=== PATIENT | female | born 1975 | race Caucasian/White ===

== ENCOUNTER 2024-01-28 00:06 | Emergency (ER) | payer BC ==
[~2024-01-28] VITALS: Ht 160 cm; Wt 79.4 kg
[2024-01-28] MEDS ORDERED: Ondansetron HCl 2 MG / ML 2ML Vial IV PRN (00:25)
[2024-01-28 00:29] LABS: BASOPHILS ABSOLUTE AUTO 0.07 K/mm3 (0.00-0.23); BASOPHILS PERCENT AUTO 1 % (0-2); EOSINOPHILS ABSOLUTE AUTO 0.16 K/mm3 (0.00-0.68); EOSINOPHILS PERCENT AUTO 1 % (0-6); Hematocrit 34.9 % (33.0-51.0); Hemoglobin 12.1 g/dL (11.5-16.0); Mean Corpuscular HGB Conc 34.7 g/dL (31.5-36.5); Mean Corpuscular Volume 87 fL (80-100); Mean Platelet Volume 8.7 fL (9.1-12.4); Platelet Count 381 K/mm3 (150-400); RDW Coefficient Variation 11.9 % (11.7-14.2); RDW Standard Deviation 38.4 fL (35.1-46.3); Red Blood Cell Count 4.03 M/mm3 (3.80-5.20); White Blood Cell Count 11.76 K/mm3 (4.00-11.30)
[2024-01-28 00:31] LABS: IMMATURE GRAN ABSOLUTE AUTO 0.05 K/mm3 (0.00-0.10); IMMATURE GRAN PERCENT AUTO 0 % (0-1); LYMPHOCYTES PERCENT AUTO 44 % (21-46); MONOCYTES ABSOLUTE AUTO 0.84 K/mm3 (0.16-1.47); MONOCYTES PERCENT AUTO 7 % (4-13); NEUTROPHILS ABSOLUTE AUTO 5.44 K/mm3 (1.96-9.15); NEUTROPHILS PERCENT AUTO 46 % (41-73)
[2024-01-28 00:50] LABS: Alanine Aminotransfer (ALT/SGP 29 U/L (12-78); Albumin, Blood 3.7 g/dL (3.4-5.0); Albumin/Globulin Ratio 1.1 (0.8-1.8); Alk Phos 77 U/L (50-136); Anion Gap 18 mmol/L (3-11); Aspartate Aminotrans (AST/SGOT 23 U/L (12-37); Bilirubin, Total <0.1 mg/dL (0.1-1.0); Blood Urea Nitrogen 18 mg/dL (8-24); Bun/Creatinine Ratio 22.4 (12.0-20.0); CO2, Blood 17 mmol/L (21-32); Calcium, Blood 8.8 mg/dL (8.5-10.1); Chloride, Blood 110 mmol/L (98-108); Globulin, Blood 3.5 g/dL (2.2-4.0); Glomerular Filtration Rate 90 (60-); Glucose, Blood 207 mg/dL (70-99); Potassium, Blood 3.2 mmol/L (3.5-5.5); Sodium, Blood 142 mmol/L (136-145); Total Protein, Blood 7.2 g/dL (6.4-8.2)
[2024-01-28] MEDS ORDERED: NEURONTIN300 MG PO (03:08)
[2024-01-28] MEDS ORDERED: BUPROPION XL150 M1 PO (03:09)
[2024-01-28] MEDS ORDERED: PAXIL40 M1 PO (03:09)
[2024-01-28] MEDS ORDERED: QUETIAPINE FUMA5012 PO (03:09)
[2024-01-28] MEDS ORDERED: NS 1,000 ML IV SCH (03:35)
[2024-01-28] MEDS ORDERED: Mag Sulfate 1 GM/D5% 100ML 100 ML IV ONE (03:35)
[2024-01-28] MEDS ORDERED: Potassium Chloride 20 MEQ TabCR PO ONE (03:45)
[2024-01-28 03:51] LABS: Ethanol (Alcohol), Blood, Med 34 mg/dL; Magnesium, Blood 2.2 mg/dL (1.6-2.4)
[2024-01-28] MEDS ORDERED: DiphenhydrAMINE HCl 50 MG/ML 1ML Vial IV ONE (05:50)
[2024-01-28] MEDS ORDERED: Acetaminophen 325 MG TABLET PO ONE (05:50)
[2024-01-28] MEDS ORDERED: Metoclopramide HCl 5MG / ML 2ML Vial IV ONE (05:50)
== END 2024-01-28 06:29 | disposition home or self-care (01) ==
LOC: ER 00:06
PROVIDERS: Student in an Organized Health Care Education/Training Program
DX: R11.2 Nausea with vomiting, unspecified (principal); F10.90 Alcohol use, unspecified, uncomplicated; F12.90 Cannabis use, unspecified, uncomplicated; Z88.8 Allergy status to other drugs, medicaments and biological substances; Z88.2 Allergy status to sulfonamides; Z88.1 Allergy status to other antibiotic agents; Z79.899 Other long term (current) drug therapy
CPT/HCPCS: 80053; 83735; 85025; 93005; 93010; 96365; 96375; 99284-25; A9270; J1200; J2765; J3475; J7030

== ENCOUNTER → 2025-08-31 | Outpatient (CLI) | payer BC ==
[~2025-08-31] MED LIST: BUPROPION XL150 M1 PO; NEURONTIN300 MG PO; PAXIL40 M1 PO; QUETIAPINE FUMA5012 PO
[2025-08-31 13:12] LABS: BASOPHILS ABSOLUTE AUTO 0.05 K/mm3 (0.00-0.23); BASOPHILS PERCENT AUTO 1 % (0-2); EOSINOPHILS ABSOLUTE AUTO 0.12 K/mm3 (0.00-0.68); EOSINOPHILS PERCENT AUTO 2 % (0-6); Hematocrit 38.1 % (33.0-51.0); Hemoglobin 12.9 g/dL (11.5-16.0); IMMATURE GRAN ABSOLUTE AUTO 0.02 K/mm3 (0.00-0.10); IMMATURE GRAN PERCENT AUTO 0 % (0-1); LYMPHOCYTES ABSOLUTE AUTO 3.18 K/mm3 (0.84-5.20); LYMPHOCYTES PERCENT AUTO 42 % (21-46); MONOCYTES ABSOLUTE AUTO 0.62 K/mm3 (0.16-1.47); MONOCYTES PERCENT AUTO 8 % (4-13); Mean Corpuscular HGB Conc 33.9 g/dL (31.5-36.5); Mean Corpuscular Volume 88 fL (80-100); NEUTROPHILS ABSOLUTE AUTO 3.51 K/mm3 (1.96-9.15); NEUTROPHILS PERCENT AUTO 47 % (41-73); NRBC ABSOLUTE 0.00 K/mm3 (0.00-0.02); NRBC Auto 0.0 /100 WBC (0.0-0.2); Platelet Count 382 K/mm3 (150-400); RDW Coefficient Variation 12.1 % (11.7-14.2); RDW Standard Deviation 39.0 fL (35.1-46.3)
== END ==
LOC: LAB 13:06 → LAB SHORT 13:06
PROVIDERS: Nurse Practitioner Acute Care
DX: N61.0 Mastitis without abscess (principal)
CPT/HCPCS: 85025